=== PATIENT | female | born 1990 | race Caucasian/White ===

== ENCOUNTER 2024-01-26 10:16 | Outpatient (CLI) | payer OTHER, SELFPAY | END 2024-01-26 23:59 | disposition home or self-care (01) | LOC: LAB.DROPOF 01-27 10:16 | PROVIDERS: PCP Student in an Organized Health Care Education/Training Program; Visit Provider Student in an Organized Health Care Education/Training Program | DX: N39.0 Urinary tract infection, site not specified (principal); B96.29 Other Escherichia coli [E. coli] as the cause of diseases classified elsewhere | CPT/HCPCS: 87086; 87088; 87186 ==